=== PATIENT | male | born 1955 | race African-American/Black ===

== ENCOUNTER → 2020-06-19 | Outpatient (CLI) | payer OTHER ==
[2020-06-19 13:49] VITALS: BP 159/94
== END | disposition home or self-care (01) ==
LOC: SURG 13:39
PROVIDERS: ATTEND Anesthesiology
DX: M48.061 Spinal stenosis, lumbar region without neurogenic claudication (principal); M54.16 Radiculopathy, lumbar region; I10 Essential (primary) hypertension; M19.90 Unspecified osteoarthritis, unspecified site
CPT/HCPCS: 99204; G0463